=== PATIENT | female | born 1935 | race Caucasian/White ===

== ENCOUNTER 2020-04-15 17:12 | Inpatient (IN) | payer OTHER, SELFPAY ==
[~2020-04-15] VITALS: Ht 160 cm; Wt 54.0 kg
[2020-04-15 17:15] VITALS: BP_SYST 124
[2020-04-15] MEDS ORDERED: PROPOFOL DRIP 100 ML IV ONE ×2 (17:54→19:30)
[2020-04-15] MEDS ORDERED: fentaNYL CITRATE/PF 100 MCG/2 ML AMP ONE (17:55)
[2020-04-15] MEDS ORDERED: MIDAZOLAM HCL IN 0.9 % NACL/PF 50 ML IV ONE (18:15)
[2020-04-15] MEDS ORDERED: CALC-808 PO (18:23)
[2020-04-15] MEDS ORDERED: ASA81 PO (18:23)
[2020-04-15] MEDS ORDERED: VITD2000 PO (18:23)
[2020-04-15] MEDS ORDERED: BENA20TA9 PO (18:23)
[2020-04-15] MEDS ORDERED: SITA100T11 PO (18:23)
[2020-04-15] MEDS ORDERED: AMLO5TAB4 PO (18:23)
[2020-04-15] MEDS ORDERED: VIT1CAPS25 PO (18:23)
[2020-04-15] MEDS ORDERED: ROSU5TAB13 PO (18:23)
[2020-04-15] MEDS ORDERED: CARV6.2554 PO (18:23)
[2020-04-15] MEDS ORDERED: ALEN10TA25 PO (18:23)
[2020-04-15] MEDS ORDERED: CARB200T8 PO (18:23)
[2020-04-15] MEDS ORDERED: AZITHROMYCIN 500 MG in D5W 250 ML IV ONE (19:00)
[2020-04-15] MEDS ORDERED: cefTRIAXone 1 GM IVPB PREMIX 50 ML IV ONE ×2 (19:00→20:35)
[2020-04-15 19:05] LABS: BILIRUBIN,URINE 1+ (NEGATIVE); BLOOD, URINE NEGATIVE (NEGATIVE); CLARITY/URINE SL CLOUDY (CLEAR); COLOR,URINE YELLOW (YELLOW); GLUCOSE,URINE NEGATIVE (NEGATIVE); KETONES,URINE TRACE (NEGATIVE); LEUKOCYTE ESTERASE ,URINE NEGATIVE (NEGATIVE); NITRITE, URINE NEGATIVE (NEGATIVE); PH,URINE 5.5 (5.0-8.0); PROTEIN URINE 1+ (NEGATIVE); UROBILINOGEN,URINE 0.2 (0.2-1.0)
[2020-04-15 19:21] LABS: BASOPHILS # (AUTO) 0.2 K/uL (0.0-0.2); HEMATOCRIT 37.3 % (36-48); HEMOGLOBIN 12.4 g/dL (12.0-16.0); LYMPHOCYTES # (AUTO) 0.5 K/uL (1.0-5.5); LYMPHOCYTES % (AUTO) 2.8 % (20.5-51.5); MEAN CORPUSCULAR HEMOGLOBIN 29 pg (27-31); MEAN CORPUSCULAR HGB CONC 33 % (32-36); MEAN CORPUSCULAR VOLUME 88 fL (79.0-98.0); MONOCYTES # (AUTO) 0.5 K/uL (0.0-1.0); NEUTROPHILS # (AUTO) 15.4 K/uL (1.8-7.7); NEUTROPHILS % (AUTO) 93.2 % (40.0-70.0); PLATELET COUNT (AUTO) 349 K/uL (130-430); RED BLOOD CELL COUNT(AUTO) 4.26 MIL/uL (4.2-6.2); RED CELL DISTRIBUTION WIDTH 14.7 % (9.0-15.0); WHITE BLOOD COUNT (AUTO) 16.5 K/uL (4.8-10.8)
[2020-04-15 19:25] LABS: BACTERIA,URINE FEW /HPF (None Seen); RBC,URINE NONE SEEN /HPF (0-3); WBC,URINE 0-3 /HPF (0-3)
[2020-04-15 19:26] LABS: MUCUS,URINE None Seen /LPF (None Seen); URINE AMORPHOUS URATE 2+ /HPF (None Seen)
[2020-04-15 19:43] LABS: ANION GAP 15 (5-15); CALCIUM 8.5 mg/dL (8.4-11.0); CHLORIDE 109 mmol/L (98-107); GLUCOSE 199 mg/dL (70-99); POTASSIUM 3.6 mmol/L (3.5-5.1); SODIUM SERUM 144 mmol/L (136-145); UREA NITROGEN, BLOOD 77 mg/dL (8-21)
[2020-04-15 19:49] LABS: ALANINE AMINOTRANSFERASE 49 U/L (12-78); ALBUMIN 2.6 g/dL (3.4-4.8); ASPARTATE AMINOTRANSFERASE 72 U/L (10-37); INR 1.1 (0.8-1.2); PROTHROMBIN TIME 11.3 SECS (9.5-12.5); TOTAL BILIRUBIN 0.5 mg/dL (0.0-1.0)
[2020-04-15] MEDS ORDERED: AZITHROMYCIN 500 MG/VIAL (ZITHROMAX) IV ONE (20:34)
[2020-04-15] MEDS ORDERED: NOREPINEPHRINE 4 MG/4 ML VIAL IV ONE (22:55)
[2020-04-15] MEDS ORDERED: NOREPINEPHRINE BITARTRATE 4 MG in NS 246 ML IV ONE (23:00)
[2020-04-15] MEDS ORDERED: NACL 0.9% 1,000 ML IV SCH (23:30)
[2020-04-16] VITALS (8 sets, daily range): BP systolic 86–133
[2020-04-16] MEDS ORDERED: ALBUTEROL MDI INHALATION 8 GM INH INH PRN (00:15)
[2020-04-16] MEDS: D5/0.45 NS 1,000 ML IV SCH ×2 (00:26→20:38)
[2020-04-16] MEDS ORDERED: NOREPINEPHRINE BITARTRATE 4 MG in D5W 246 ML IV PRN (01:00)
[2020-04-16] MEDS ORDERED: ALBUMIN HUMAN 25% 50 ML IV ONE (01:00)
[2020-04-16] MEDS ORDERED: PROPOFOL 200MG/ 20ML VIAL (DIPRIVAN) IV ONE (01:00)
[2020-04-16] MEDS ORDERED: PIPERACILLIN/TAZO 2.25G/DEX-IS 50 ML IV SCH (02:30)
[2020-04-16] MEDS ORDERED: PROPOFOL DRIP 100 ML IV PRN (03:15)
[2020-04-16] MEDS ORDERED: PIPERACILLIN/TAZOBACTAM 2.25 GM VIAL IV ONE (05:04)
[2020-04-16 08:44] LABS: BASOPHILS # (AUTO) 0.1 K/uL (0.0-0.2); BASOPHILS % (AUTO) 0.4 % (0.0-2.0); EOSINOPHILS # (AUTO) 0.1 K/uL (0.0-0.4); EOSINOPHILS % (AUTO) 0.8 % (0.0-4.0); HEMATOCRIT 33.3 % (36-48); HEMOGLOBIN 10.8 g/dL (12.0-16.0); LYMPHOCYTES # (AUTO) 0.9 K/uL (1.0-5.5); MEAN CORPUSCULAR HEMOGLOBIN 29 pg (27-31); MEAN CORPUSCULAR HGB CONC 32 % (32-36); MEAN CORPUSCULAR VOLUME 89 fL (79.0-98.0); MONOCYTES # (AUTO) 0.4 K/uL (0.0-1.0); MONOCYTES % (AUTO) 2.8 % (1.7-9.3); PLATELET COUNT (AUTO) 290 K/uL (130-430); RED BLOOD CELL COUNT(AUTO) 3.74 MIL/uL (4.2-6.2); RED CELL DISTRIBUTION WIDTH 14.9 % (9.0-15.0); WHITE BLOOD COUNT (AUTO) 15.5 K/uL (4.8-10.8)
[2020-04-16] MEDS: ASCORBIC ACID 500 MG TABLET NG SCH ×2 (09:00→21:00)
[2020-04-16] MEDS: CHOLECALCIFEROL (VITAMIN D3) 2,000 UNIT TABLET NG SCH (09:00)
[2020-04-16] MEDS: DEXAMETHASONE SOD PHOSPHATE 4 MG/ML VIAL IVP SCH (09:00)
[2020-04-16 09:25] LABS: ALANINE AMINOTRANSFERASE 58 U/L (12-78); ANION GAP 18 (5-15); CALCIUM 7.8 mg/dL (8.4-11.0); CHLORIDE 108 mmol/L (98-107); GLUCOSE 236 mg/dL (70-99); LACTATE DEHYDROGENASE 465 U/L (81-234); PHOSPHORUS 4.7 mg/dL (2.7-4.5); POTASSIUM 3.3 mmol/L (3.5-5.1); SODIUM SERUM 146 mmol/L (136-145); THYROID STIMULATING HORMONE 0.09 uIu/mL (0.36-3.74); TOTAL BILIRUBIN 0.5 mg/dL (0.0-1.0); UREA NITROGEN, BLOOD 83 mg/dL (8-21)
[2020-04-16] MEDS ORDERED: SUCCINYLCHOLINE CHLORIDE 20 MG/ML(QUELICIN) IVP ONE (09:45)
[2020-04-16] MEDS ORDERED: ROCURONIUM BROMIDE 10 MG/ML (ZEMURON) IV ONE ×2 (09:45→11:00)
[2020-04-16] MEDS ORDERED: ETOMIDATE 20 MG/ 10 ML VIAL (AMIDATE) IVP ONE ×2 (09:45→11:00)
[2020-04-16 09:48] LABS: CHOLESTEROL 107 mg/dL (<200); CKMB RELATIVE INDEX 1.4 (0.0-2.9); CREATINE KINASE MB 57.5 ng/mL (0-3.6); HDL CHOLESTEROL 22 mg/dL (>55); LDL CHOLESTEROL 52 mg/dL (<100); TRIGLYCERIDES 235 mg/dL (30-150)
[2020-04-16 09:49] LABS: ASPARTATE AMINOTRANSFERASE 135 U/L (10-37)
[2020-04-16 09:56] LABS: C-REACTIVE PROTEIN QUANT 42.3 mg/dL (0-0.5)
[2020-04-16] MEDS: PIPERACILLIN/TAZO 2.25G/DEX-IS 50 ML IV SCH ×2 (14:38→21:16)
[2020-04-16] MEDS ORDERED: HEPARIN SODIUM,PORCINE 5,000 UNITS/ML VIAL SUBCUT ONE (15:45)
[2020-04-16] MEDS ORDERED: LORazepam 2 MG/ML VIAL IVP PRN (16:15)
[2020-04-16] MEDS ORDERED: MIDAZOLAM HCL IN 0.9 % NACL/PF 50 ML IV PRN (16:15)
[2020-04-16] MEDS ORDERED: MORPHINE 4 MG/ML INJ. SYRINGE IVP PRN (16:15)
[2020-04-16] MEDS: PROPOFOL DRIP 100 ML IV PRN (16:23)
[2020-04-16] MEDS: FAMOTIDINE PF 20 MG/2 ML VIAL IVP SCH (16:38)
[2020-04-16] MEDS ORDERED: cefTRIAXone 1 GM IVPB PREMIX 50 ML IV SCH (19:00)
[2020-04-16] MEDS: AZITHROMYCIN 500 MG in NS 250 ML IV SCH (20:36)
[2020-04-16] MEDS: HEPARIN SODIUM,PORCINE 5,000 UNITS/ML VIAL SUBCUT SCH (22:00)
[2020-04-17] VITALS (30 sets, daily range): BP systolic 85–159
[2020-04-17] MEDS: PROPOFOL DRIP 100 ML IV PRN ×2 (04:22→09:24)
[2020-04-17 06:05] LABS: ALANINE AMINOTRANSFERASE 43 U/L (12-78); ALBUMIN 2.2 g/dL (3.4-4.8); ANION GAP 15 (5-15); ASPARTATE AMINOTRANSFERASE 88 U/L (10-37); CALCIUM 7.6 mg/dL (8.4-11.0); CHLORIDE 107 mmol/L (98-107); CREATININE 4.17 mg/dL (0.55-1.30); GLUCOSE 380 mg/dL (70-99); PHOSPHORUS 4.9 mg/dL (2.7-4.5); SODIUM SERUM 142 mmol/L (136-145); TOTAL BILIRUBIN 0.3 mg/dL (0.0-1.0); UREA NITROGEN, BLOOD 89 mg/dL (8-21)
[2020-04-17] MEDS ORDERED: HEPARIN SODIUM,PORCINE 5,000 UNITS/ML VIAL ONE ×2 (06:05→22:25)
[2020-04-17] MEDS: PIPERACILLIN/TAZO 2.25G/DEX-IS 50 ML IV SCH ×3 (06:14→17:13)
[2020-04-17] MEDS: HEPARIN SODIUM,PORCINE 5,000 UNITS/ML VIAL SUBCUT SCH ×3 (06:16→22:29)
[2020-04-17 06:36] LABS: BASOPHILS % (AUTO) 0.1 % (0.0-2.0); HEMATOCRIT 31.8 % (36-48); HEMOGLOBIN 10.4 g/dL (12.0-16.0); LYMPHOCYTES # (AUTO) 0.5 K/uL (1.0-5.5); LYMPHOCYTES % (AUTO) 3.7 % (20.5-51.5); MEAN CORPUSCULAR HEMOGLOBIN 29 pg (27-31); MEAN CORPUSCULAR HGB CONC 33 % (32-36); MEAN CORPUSCULAR VOLUME 90 fL (79.0-98.0); MONOCYTES # (AUTO) 0.4 K/uL (0.0-1.0); MONOCYTES % (AUTO) 2.8 % (1.7-9.3); NEUTROPHILS # (AUTO) 12.5 K/uL (1.8-7.7); NEUTROPHILS % (AUTO) 93.4 % (40.0-70.0); PLATELET COUNT (AUTO) 237 K/uL (130-430); RED BLOOD CELL COUNT(AUTO) 3.53 MIL/uL (4.2-6.2); RED CELL DISTRIBUTION WIDTH 15.2 % (9.0-15.0); WHITE BLOOD COUNT (AUTO) 13.4 K/uL (4.8-10.8)
[2020-04-17] MEDS: DEXAMETHASONE SOD PHOSPHATE 4 MG/ML VIAL IVP SCH (08:35)
[2020-04-17] MEDS: FAMOTIDINE PF 20 MG/2 ML VIAL IVP SCH (08:35)
[2020-04-17] MEDS: CHOLECALCIFEROL (VITAMIN D3) 2,000 UNIT TABLET NG SCH (08:35)
[2020-04-17] MEDS: ASCORBIC ACID 500 MG TABLET NG SCH ×2 (08:35→22:27)
[2020-04-17] MEDS ORDERED: POTASSIUM CHLORIDE 20 MEQ/PKT PACKET NG ONE (11:45)
[2020-04-17] MEDS: D5NS 1,000 ML IV SCH ×2 (12:08→22:27)
[2020-04-17] MEDS ORDERED: VECURONIUM BROMIDE 10 MG/VIAL (NORCURON) IVP ONE (14:52)
[2020-04-17] MEDS ORDERED: ETOMIDATE 20 MG/ 10 ML VIAL (AMIDATE) IVP ONE (14:52)
[2020-04-17] MEDS: AZITHROMYCIN 500 MG in NS 250 ML IV SCH (18:27)
[2020-04-18] VITALS (32 sets, daily range): BP systolic 98–163
[2020-04-18] MEDS: PIPERACILLIN/TAZO 2.25G/DEX-IS 50 ML IV SCH ×4 (00:25→17:20)
[2020-04-18] MEDS ORDERED: HEPARIN SODIUM,PORCINE 5,000 UNITS/ML VIAL ONE ×3 (06:35→22:11)
[2020-04-18] MEDS: HEPARIN SODIUM,PORCINE 5,000 UNITS/ML VIAL SUBCUT SCH ×3 (06:39→22:17)
[2020-04-18 06:40] LABS: HEMATOCRIT 31.2 % (36-48); MEAN CORPUSCULAR HEMOGLOBIN 29 pg (27-31); MEAN CORPUSCULAR HGB CONC 32 % (32-36); MEAN CORPUSCULAR VOLUME 91 fL (79.0-98.0); PLATELET COUNT (AUTO) 350 K/uL (130-430); RED BLOOD CELL COUNT(AUTO) 3.45 MIL/uL (4.2-6.2); WHITE BLOOD COUNT (AUTO) 21.7 K/uL (4.8-10.8)
[2020-04-18] MEDS: PROPOFOL DRIP 100 ML IV PRN ×3 (06:40→22:30)
[2020-04-18 07:11] LABS: ALANINE AMINOTRANSFERASE 38 U/L (12-78); ALBUMIN 1.9 g/dL (3.4-4.8); ANION GAP 18 (5-15); ASPARTATE AMINOTRANSFERASE 51 U/L (10-37); CALCIUM 7.8 mg/dL (8.4-11.0); CHLORIDE 110 mmol/L (98-107); CREATININE 4.77 mg/dL (0.55-1.30); GLUCOSE 172 mg/dL (70-99); PHOSPHORUS 4.9 mg/dL (2.7-4.5); SODIUM SERUM 145 mmol/L (136-145); TOTAL BILIRUBIN 0.4 mg/dL (0.0-1.0); UREA NITROGEN, BLOOD 93 mg/dL (8-21)
[2020-04-18 07:41] LABS: POTASSIUM 2.8 mmol/L (3.5-5.1)
[2020-04-18] MEDS ORDERED: KCL 40 mEq in 100 mL (PREMIX) 100 ML IV ONE (08:00)
[2020-04-18 08:17] LABS: CKMB RELATIVE INDEX 0.9 (0.0-2.9); CREATINE KINASE MB 8.1 ng/mL (0-3.6)
[2020-04-18] MEDS: D5NS 1,000 ML IV SCH ×2 (08:46→17:20)
[2020-04-18] MEDS: FAMOTIDINE PF 20 MG/2 ML VIAL IVP SCH (08:46)
[2020-04-18] MEDS: DEXAMETHASONE SOD PHOSPHATE 4 MG/ML VIAL IVP SCH (08:46)
[2020-04-18] MEDS: ASCORBIC ACID 500 MG TABLET NG SCH ×2 (08:47→21:00)
[2020-04-18] MEDS: CHOLECALCIFEROL (VITAMIN D3) 2,000 UNIT TABLET NG SCH (08:47)
[2020-04-18 10:46] LABS: BAND % (MANUAL) 18 % (0-6); BASOPHILS % (MANUAL) 0 % (0-2); EOSINOPHILS % (MANUAL) 4 % (0-7); LYMPHOCYTES % (MANUAL) 7 % (20-46); MONOCYTES % (MANUAL) 3 % (0-11)
[2020-04-18] MEDS: AZITHROMYCIN 500 MG in NS 250 ML IV SCH (18:11)
[2020-04-19] VITALS (21 sets, daily range): BP systolic 99–166
[2020-04-19] MEDS: PIPERACILLIN/TAZO 2.25G/DEX-IS 50 ML IV SCH ×4 (00:18→17:22)
[2020-04-19] MEDS: D5NS 1,000 ML IV SCH ×2 (04:30→13:18)
[2020-04-19] MEDS: PROPOFOL DRIP 100 ML IV PRN ×2 (04:37→13:17)
[2020-04-19] MEDS ORDERED: HEPARIN SODIUM,PORCINE 5,000 UNITS/ML VIAL ONE ×3 (05:35→21:34)
[2020-04-19] MEDS: HEPARIN SODIUM,PORCINE 5,000 UNITS/ML VIAL SUBCUT SCH ×3 (05:58→22:00)
[2020-04-19 06:42] LABS: BASOPHILS # (AUTO) 0.1 K/uL (0.0-0.2); BASOPHILS % (AUTO) 0.5 % (0.0-2.0); EOSINOPHILS # (AUTO) 1.3 K/uL (0.0-0.4); EOSINOPHILS % (AUTO) 4.9 % (0.0-4.0); HEMATOCRIT 33.8 % (36-48); HEMOGLOBIN 10.7 g/dL (12.0-16.0); LYMPHOCYTES # (AUTO) 1.2 K/uL (1.0-5.5); LYMPHOCYTES % (AUTO) 4.6 % (20.5-51.5); MEAN CORPUSCULAR HEMOGLOBIN 29 pg (27-31); MEAN CORPUSCULAR HGB CONC 32 % (32-36); MEAN CORPUSCULAR VOLUME 92 fL (79.0-98.0); MONOCYTES # (AUTO) 0.4 K/uL (0.0-1.0); MONOCYTES % (AUTO) 1.6 % (1.7-9.3); NEUTROPHILS # (AUTO) 23.4 K/uL (1.8-7.7); PLATELET COUNT (AUTO) 382 K/uL (130-430); RED BLOOD CELL COUNT(AUTO) 3.68 MIL/uL (4.2-6.2); RED CELL DISTRIBUTION WIDTH 15.5 % (9.0-15.0); WHITE BLOOD COUNT (AUTO) 26.4 K/uL (4.8-10.8)
[2020-04-19 07:07] LABS: ANION GAP 18 (5-15); CALCIUM 8.4 mg/dL (8.4-11.0); CHLORIDE 113 mmol/L (98-107); CREATININE 4.96 mg/dL (0.55-1.30); GLUCOSE 187 mg/dL (70-99); SODIUM SERUM 147 mmol/L (136-145); UREA NITROGEN, BLOOD 97 mg/dL (8-21)
[2020-04-19] MEDS: CHOLECALCIFEROL (VITAMIN D3) 2,000 UNIT TABLET NG SCH (08:06)
[2020-04-19] MEDS: DEXAMETHASONE SOD PHOSPHATE 4 MG/ML VIAL IVP SCH (08:06)
[2020-04-19] MEDS: FAMOTIDINE PF 20 MG/2 ML VIAL IVP SCH (08:06)
[2020-04-19 08:07] LABS: NEUTROPHILS % (AUTO) 88.4 % (40.0-70.0)
[2020-04-19] MEDS: ASCORBIC ACID 500 MG TABLET NG SCH ×2 (08:07→21:00)
[2020-04-19] MEDS: AZITHROMYCIN 500 MG in NS 250 ML IV SCH (19:07)
== END 2020-04-19 22:03 | disposition expired | DRG 871 ==
LOC: SED 17:12 → SIC 22:49
PROVIDERS: ADMIT Internal Medicine; ATTEND Internal Medicine
PROC: 5A09357 Assistance with Respiratory Ventilation, Less than 24 Consecutive Hours, Continuous Positive Airway Pressure (ICD-10-PCS; 2020-04-15)
PROC: 5A1945Z Respiratory Ventilation, 24-96 Consecutive Hours (ICD-10-PCS; principal; 2020-04-16)
PROC: 0BH17EZ Insertion of Endotracheal Airway into Trachea, Via Natural or Artificial Opening (ICD-10-PCS; 2020-04-16)
PROC: XW13325 Transfusion of Convalescent Plasma (Nonautologous) into Peripheral Vein, Percutaneous Approach, New Technology Group 5 (ICD-10-PCS; 2020-04-17)
DX: A41.89 Other specified sepsis (principal); U07.1 COVID-19; J96.01 Acute respiratory failure with hypoxia; R65.21 Severe sepsis with septic shock; E43 Unspecified severe protein-calorie malnutrition; J12.89 Other viral pneumonia; N17.9 Acute kidney failure, unspecified; D72.810 Lymphocytopenia; E07.81 Sick-euthyroid syndrome; E78.5 Hyperlipidemia, unspecified; Z51.5 Encounter for palliative care; E86.0 Dehydration; E87.6 Hypokalemia; E11.22 Type 2 diabetes mellitus with diabetic chronic kidney disease; G40.909 Epilepsy, unspecified, not intractable, without status epilepticus; I12.9 Hypertensive chronic kidney disease with stage 1 through stage 4 chronic kidney disease, or unspecified chronic kidney disease; I25.10 Atherosclerotic heart disease of native coronary artery without angina pectoris; M81.0 Age-related osteoporosis without current pathological fracture; N18.9 Chronic kidney disease, unspecified; Z86.19 Personal history of other infectious and parasitic diseases; Z68.21 Body mass index [BMI] 21.0-21.9, adult; Z79.899 Other long term (current) drug therapy
CPT/HCPCS: 36415; 36600; 71045; 76770; 80048; 80053; 80061; 81000-TC; 82550-TC; 82553-TC; 82728; 82803-TC; 83605; 83615-TC; 83735-TC; 83880; 84100-TC; 84439; 84443-TC; 84480; 84484; 85007; 85025; 85027; 85379; 85610-TC; 85730-TC; 86140; 86710; 86886; 86900; 86901; 87040-TC; 87081; 87086; 93005; 94002; 94003; 94640; 96365; 96367; 99291; J0330; J0456; J0696; J1100; J1644; J2060; J2270; J2543; J2704; J3010; J3480; J3490; J7050; J7060; P9017